=== PATIENT | male | born 1975 | race American Indian/Alaskan Native ===

== ENCOUNTER 2017-09-23 17:11 | Emergency (ER) | payer OTHER ==
[2017-09-23 18:09] VITALS: BP 167/88
--- NOTE | 2017-09-23 20:28 | Emergency Department Report ---
- General Chief complaint: Animal Bite Stated complaint: INSECT BITE Time Seen by Provider: 09/23/17 19:30 Source: patient Mode of arrival: Ambulatory Limitations: No Limitations - History of Present Illness Initial comments: This is a 41-year-old male nontoxic, well nourished in appearance, no acute signs of distress presents to the ED with c/o of rash. 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 Patient denies any pus or drainage. Patient denies any fever, chills, nausea, vomiting, chest pain, shortness of breath, headache, stiff neck, numbness, tingling. Patient denies any allergies or significant past medical history. MD complaint: insect bite/sting -: days(s) (3) Severity: mild Severity scale (0 -10): 3 Consistency: constant Improves with: none Worsens with: none Context: none Associated symptoms: denies other symptoms Treatments Prior to Arrival: none - Related Data Previous Rx's Medication Instructions Recorded Last Taken Type Prednisone [predniSONE 10 mg 10 mg PO .TAPER #1 tab.ds.pk 09/23/17 Unknown Rx (6-Day Pack, 21 Tabs)] diphenhydrAMINE [Benadryl CAP] 25 mg PO Q6HR PRN #30 capsule 09/23/17 Unknown Rx Allergies Allergy/AdvReac Type Severity Reaction Status Date / Time No Known Allergies Allergy Unverified 09/23/17 18:09 Abscess Boil HPI - HPI Chief Complaint: Animal Bite Stated Complaint: INSECT BITE Time Seen by Provider: 09/23/17 19:30 Home Medications: Previous Rx's Medication Instructions Recorded Last Taken Type Prednisone [predniSONE 10 mg 10 mg PO .TAPER #1 tab.ds.pk 09/23/17 Unknown Rx (6-Day Pack, 21 Tabs)] diphenhydrAMINE [Benadryl CAP] 25 mg PO Q6HR PRN #30 capsule 09/23/17 Unknown Rx Allergies/Adverse Reactions: Allergies Allergy/AdvReac Type Severity Reaction Status Date / Time No Known Allergies Allergy Unverified 09/23/17 18:09 ED Review of Systems ROS: Stated complaint: INSECT BITE Other details as noted in HPI Constitutional: denies: chills, fever Eyes: denies: eye pain, eye discharge, vision change ENT: denies: ear pain, throat pain Respiratory: denies: cough, shortness of breath, wheezing Cardiovascular: denies: chest pain, palpitations Endocrine: no symptoms reported Gastrointestinal: denies: abdominal pain, nausea, diarrhea Genitourinary: denies: urgency, dysuria Musculoskeletal: denies: back pain, joint swelling, arthralgia Skin: denies: rash, lesions Neurological: denies: headache, weakness, paresthesias Psychiatric: denies: anxiety, depression Hematological/Lymphatic: denies: easy bleeding, easy bruising ED Past Medical Hx - Past Medical History Previous Medical History?: No - Surgical History Past Surgical History?: No - Social History Smoking Status: Former Smoker Substance Use Type: None - Medications Home Medications: Home Medications Medication Instructions Recorded Confirmed Last Taken Type Prednisone [predniSONE 10 mg 10 mg PO .TAPER #1 tab.ds.pk 09/23/17 Unknown Rx (6-Day Pack, 21 Tabs)] diphenhydrAMINE [Benadryl CAP] 25 mg PO Q6HR PRN #30 capsule 09/23/17 Unknown Rx ED Physical Exam - General Limitations: No Limitations General appearance: alert, in no apparent distress - Head Head exam: Present: atraumatic, normocephalic - Eye Eye exam: Present: normal appearance - ENT ENT exam: Present: mucous membranes moist - Neck Neck exam: Present: normal inspection - Respiratory Respiratory exam: Present: normal lung sounds bilaterally. Absent: respiratory distress - Cardiovascular Cardiovascular Exam: Present: regular rate, normal rhythm. Absent: systolic murmur, diastolic murmur, rubs, gallop - GI/Abdominal GI/Abdominal exam: Present: soft, normal bowel sounds - Rectal Rectal exam: Present: deferred - Extremities Exam Extremities exam: Present: normal inspection - Back Exam Back exam: Present: normal inspection - Neurological Exam Neurological exam: Present: alert, oriented X3 - Psychiatric Psychiatric exam: Present: normal affect, normal mood - Skin Skin exam: Present: warm, dry, intact, normal color, other (bedbug bites to mutiple sight to lower and upper extermities). Absent: rash ED Course Vital Signs 09/23/17 18:06 Temperature 98.5 F Pulse Rate 84 Respiratory 18 Rate Blood Pressure 167/88 O2 Sat by Pulse 100 Oximetry - Reevaluation(s) Reevaluation #1: 06/11/18 20:45 Patient is speaking in full sentences with no signs of distress noted. ED Medical Decision Making - Medical Decision Making This is a 41-year-old male that presented with bedbugs. Patient is stable and was examined by me. Patient was educated on bedbugs and how to avoid them and at home remedies how to get rid of them. Patient is discharged with Benadryl and prednisone. He was instructed to Follow-up with a primary care doctor in 3- 5 days or if symptoms worsen and continue return to emergency room as soon as possible. At time of discharge, the patient does not seem toxic or ill in appearance. No acute signs of distress noted. Patient agrees to discharge treatment plan of care. No further questions noted by the patient. Critical care attestation.: If time is entered above; I have spent that time in minutes in the direct care of this critically ill patient, excluding procedure time. ED Disposition Clinical Impression: Bedbug bite Qualifiers: Encounter type: initial encounter Qualified Code(s): W57.XXXA - Bitten or stung by nonvenomous insect and other nonvenomous arthropods, initial encounter Disposition: DC-01 TO HOME OR SELFCARE Is pt being admited?: No Does the pt Need Aspirin: No Condition: Stable Additional Instructions: Follow-up with a primary care doctor in 3-5 days or if symptoms worsen and continue return to emergency room as soon as possible. Prescriptions: diphenhydrAMINE [Benadryl CAP] 25 mg PO Q6HR PRN #30 capsule PRN Reason: Itching Prednisone [predniSONE 10 mg (6-Day Pack, 21 Tabs)] 10 mg PO .TAPER #1 tab.ds.pk Referrals: PRIMARY CARE, [Primary Care Provider] - 3-5 Days MALINI LARSEN MD [Staff Physician] - 3-5 Days [facility] [Outside] - 3-5 Days [facility] [Outside] - 3-5 Days Forms: Work/School Release Form(ED)
== END 2017-09-23 20:55 | disposition home or self-care (01) ==
LOC: ED 17:11
DX: S40.862A Insect bite (nonvenomous) of left upper arm, initial encounter (principal); S40.861A Insect bite (nonvenomous) of right upper arm, initial encounter; S80.862A Insect bite (nonvenomous), left lower leg, initial encounter; S80.861A Insect bite (nonvenomous), right lower leg, initial encounter; Z87.891 Personal history of nicotine dependence; W57.XXXA Bitten or stung by nonvenomous insect and other nonvenomous arthropods, initial encounter; Y93.89 Activity, other specified; Y99.8 Other external cause status; Y92.89 Other specified places as the place of occurrence of the external cause
CPT/HCPCS: 99282

== ENCOUNTER 2018-07-01 12:47 | Emergency (ER) | payer BC, OTHER ==
[2018-07-01 13:40] VITALS: BP 117/66
--- NOTE | 2018-07-01 13:41 | Emergency Department Report ---
Chief Complaint: Wound/Laceration Stated Complaint: SINUS INFECTION/CUT HAND Time Seen by Provider: 07/01/18 13:37 - HPI History of Present Illness: This is a 42 y.o. male that presents with congestion and laceration to left 5th proximal digit. Patient states he accidentally cut finger while at work. - ROS Review of Systems: congestion and laceration to left 5th proximal digit. - Exam Vital Signs: Vital Signs 07/01/18 13:37 Temperature 98.7 F Pulse Rate 74 Respiratory 16 Rate Blood Pressure 117/66 O2 Sat by Pulse 99 Oximetry MSE screening note: Focused history and physical exam performed. Due to findings the following was ordered: Fast track for further evaluation. ED Disposition for MSE Condition: Stable
--- NOTE | 2018-07-01 15:07 | Emergency Department Report ---
Minor Respiratory - HPI Chief Complaint: Wound/Laceration Stated Complaint: SINUS INFECTION/CUT HAND Time Seen by Provider: 07/01/18 13:37 Duration: 3 Days Pain Location: Throat Severity: mild Minor Respiratory: Yes Sore Throat, Yes Able to Tolerate Fluids, No Rhinorrhea, No Ear Pain, No Cough, No Sick Contacts, No Hemoptysis, No Chest Pain, No Shortness of Breath, No Fever Other History: 42 yo with 4 day hx of sinus congestion and pain. no cp.no sob. no cough. no fever. pmh. none. psh. none. rx. none ED Review of Systems ROS: Stated complaint: SINUS INFECTION/CUT HAND Other details as noted in HPI Comment: All other systems reviewed and negative Constitutional: denies: chills, fever Eyes: denies: eye pain ENT: as per HPI, throat pain. denies: dental pain, hearing loss, epistaxis Respiratory: denies: cough Cardiovascular: denies: palpitations Endocrine: denies: excessive sweating Gastrointestinal: denies: nausea Genitourinary: denies: dysuria Neurological: denies: headache Psychiatric: denies: depression Hematological/Lymphatic: denies: easy bleeding ED Past Medical Hx - Past Medical History Previous Medical History?: No - Surgical History Past Surgical History?: No - Family History Family history: no significant - Social History Smoking Status: Never Smoker Substance Use Type: None - Medications Home Medications: Home Medications Medication Instructions Recorded Confirmed Last Taken Type Amoxicillin 500 mg PO BID #20 capsule 07/01/18 Unknown Rx Fluticasone [Flonase] 1 spray NS QDAY #1 bottle 07/01/18 Unknown Rx predniSONE [Deltasone] 20 mg PO DAILY #5 tablet 07/01/18 Unknown Rx Minor Respiratory Exam - Exam General: Vital signs noted. No distress. Alert and acting appropriately. HEENT: Yes Pharyngeal Erythema, Yes Moist Mucous Membranes, Yes Frontal Tenderness, Yes Maxillary Tenderness, No Pharyngeal Exudates, No Rhinorrhea, No Conjuctival Injection Ear: Neither TM Bulge, Neither TM Erythema, Neither EAC Pain, Neither EAC Discharge Neck: Yes Supple, No Adenopathy Lungs: Yes Good Air Exchange, No Wheezes, No Ronchi, No Stridor, No Cough, No Labored Respirations, No Retractions, No Use of Accessory Muscles, No Other Abnormal Lung Sounds Heart: Yes Regular, No Murmur Abdomen: Yes Normal Bowel Sounds, No Tenderness, No Peritoneal Signs Skin: No Rash, No Edema Neurologic: Alert and oriented, no deficits. Musculoskeletal: Unremarkable. ED Course Vital Signs 07/01/18 13:37 Temperature 98.7 F Pulse Rate 74 Respiratory 16 Rate Blood Pressure 117/66 O2 Sat by Pulse 99 Oximetry ED Medical Decision Making - Medical Decision Making simple urti non toxic afebrile VSS abrasion- several days old with scab to finger Vital Signs 07/01/18 13:37 Temperature 98.7 F Pulse Rate 74 Respiratory 16 Rate Blood Pressure 117/66 O2 Sat by Pulse 99 Oximetry Critical care attestation.: If time is entered above; I have spent that time in minutes in the direct care of this critically ill patient, excluding procedure time. ED Disposition Clinical Impression: Sinusitis, Abrasion, finger w/o infection Disposition: -01 TO HOME OR SELFCARE Is pt being admited?: No Does the pt Need Aspirin: No Condition: Stable Instructions: Sinusitis (ED) Additional Instructions: MED ORDERED UNTIL GONE HYDRATE WELL WITH WATER MOTRIN OR TYLENOL FOR PAIN OR FEVER DIET TOLERATED ACTIVITY TOLERATED FOLLOW UP PCP referral below Prescriptions: Amoxicillin 500 mg PO BID #20 capsule predniSONE [Deltasone] 20 mg PO DAILY #5 tablet Fluticasone [Flonase] 1 spray NS QDAY #1 bottle Referrals: [facility] [Outside] - 3-5 Days Time of Disposition: 15:05
== END 2018-07-01 15:37 | disposition home or self-care (01) ==
LOC: ED 12:47
DX: S60.312A Abrasion of left thumb, initial encounter (principal); J32.9 Chronic sinusitis, unspecified; X58.XXXA Exposure to other specified factors, initial encounter; Y93.89 Activity, other specified; Y92.89 Other specified places as the place of occurrence of the external cause; Y99.8 Other external cause status
CPT/HCPCS: 99282